=== PATIENT | female | born 2000 | race Caucasian/White ===

== ENCOUNTER 2020-09-30 02:25 | Emergency (ER) | payer OTHER ==
[~2020-09-30 02:25] MED LIST: FLEXERIL 10 MG10 MG PO; LODINE CAP 300300 MG PO; MACROBID 100 M100 MG PO
== END 2020-09-30 05:10 | disposition home or self-care (01) ==
LOC: ER1 02:25
DX: S29.012A Strain of muscle and tendon of back wall of thorax, initial encounter (principal); S16.1XXA Strain of muscle, fascia and tendon at neck level, initial encounter; S29.011A Strain of muscle and tendon of front wall of thorax, initial encounter; S00.83XA Contusion of other part of head, initial encounter; Z88.0 Allergy status to penicillin; Z88.2 Allergy status to sulfonamides; V49.50XA Passenger injured in collision with unspecified motor vehicles in traffic accident, initial encounter; Y92.410 Unspecified street and highway as the place of occurrence of the external cause
CPT/HCPCS: 70450; 71250; 72125; 99284

== ENCOUNTER → 2021-02-17 | Outpatient (CLI) | payer OTHER | LOC: LAB 14:31 | DX: Z32.00 Encounter for pregnancy test, result unknown (principal) | CPT/HCPCS: 36415; 84702 ==

== ENCOUNTER → 2021-02-19 | Outpatient (CLI) | payer OTHER | LOC: LAB 16:58 | DX: Z32.00 Encounter for pregnancy test, result unknown (principal) | CPT/HCPCS: 84702 ==